=== PATIENT | female | born 1985 | race Caucasian/White ===

== ENCOUNTER 2016-11-05 14:22 | Emergency (ER) | payer MEDICAID ==
[~2016-11-05] VITALS: Ht 154.9 cm; Wt 69.0 kg
[~2016-11-05 14:22] MED LIST: CEPH-443 PO; CIPR500T4 PO; IBUP-1542 PO; PHEN-538 PO; SULF1TAB31 PO; no meds
[2016-11-05 14:25] VITALS: Ht 154.9 cm; Wt 69.0 kg
[2016-11-05] MEDS ORDERED: LORAZEPAM 0.5 MG TAB PO ONE (15:00)
[2016-11-05 15:14] LABS: ADD SCAN DIFF NO
[2016-11-05 15:16] LABS: BASOPHILS % 0.3 % (0.0-2.0); EOSINOPHILS # 0.1 10^3/ul (0.0-0.5); EOSINOPHILS % 1.3 % (0.0-7.0); HEMATOCRIT 39.2 % (37.0-47.0); HEMOGLOBIN 13.1 g/dl (12.0-16.0); LYMPHOCYTES # 2.3 10^3/ul (0.8-2.9); MEAN CORPUSCULAR HEMOGLOBIN 28.5 pg (29.0-33.0); MEAN CORPUSCULAR HGB CONC 33.4 g/dl (32.0-37.0); MEAN CORPUSCULAR VOLUME 85.2 fl (82.0-101.0); MEAN PLATELET VOLUME 8.7 fl (7.4-10.4); MONOCYTE # 0.7 10^3/ul (0.3-0.9); MONOCYTES % 8.2 % (0.0-11.0); NEUTROPHIL # 5.7 10^3/ul (1.6-7.5); NEUTROPHILS % 63.9 % (39.0-77.0); PLATELET COUNT 355 10^3/UL (140-415); RED CELL DISTRIBUTION WIDTH 13.1 % (11.5-14.5); WHITE BLOOD COUNT 8.9 10^3/ul (4.8-10.8)
[2016-11-05 15:21] LABS: URINE BLOOD (Dip) POC Negative (NEGATIVE)
[2016-11-05 15:40] LABS: ALBUMIN 4.7 g/dl (3.3-4.9); POTASSIUM 4.4 mmol/L (3.5-5.1)
[2016-11-05 15:42] LABS: CREATININE 0.62 mg/dl (0.44-1.00)
[2016-11-05 15:43] LABS: ALBUMIN/GLOBULIN RATIO 1.38; BILIRUBIN,INDIRECT 0.1 mg/dl (0-1.1); BILIRUBIN,TOTAL 0.1 mg/dl (0.2-1.3); CALCIUM 9.8 mg/dl (8.4-10.2); TOTAL PROTEIN 8.1 g/dl (6.1-8.1)
[2016-11-05] MEDS ORDERED: ACET500C5 PO (16:00)
[2016-11-05] MEDS ORDERED: LORA-441 PO (16:00)
[2016-11-05] MEDS ORDERED: BISM262O23 PO (16:04)
--- NOTE | 2016-11-05 16:07 | ERD ---
ER Documentation Chief Complaint Date/Time DATE: 11/05/16 TIME: 16:05 Chief Complaint "palpitation, both hands and feet are numb, body pain for past few days" HPI This 31-year-old female presents with multiple complaints. For last few days she has had some numbness tingling her hands, palpitations left lower quadrant intermittent abdominal pain, diarrhea, upper back pain. She denies any chest pain, syncope, seizures, headache. ROS All systems reviewed and are negative except as per history of present illness. Medications Home Meds Active Scripts Bismuth Subsalicylate* (Pepto-Bismol*) 262 Mg/15 Ml Oral.susp, 15 ML PO Q3H Y for DIARRHEA for 5 Days, ML Prov:NIKKI AKHTAR MD 11/05/16 Acetaminophen* (Tylophen*) 500 Mg Capsule, 1 CAP PO Q6H Y for PAIN AND OR ELEVATED TEMP, #20 CAP Prov:NIKKI AKHTAR MD 11/05/16 Lorazepam* (Ativan*) 0.5 Mg Tablet, 0.5 MG PO Q8, #14 TAB Prov:NIKKI AKHTAR MD 11/05/16 Phenazopyridine Hcl* (Pyridium*) 200 Mg Tab, 200 MG PO TID Y for URINARY PAIN for 2 Days, #6 TAB Prov:ROSELINE PAULA PA-C 02/25/16 Cephalexin* (Keflex*) 500 Mg Capsule, 500 MG PO QID for 7 Days, CAP Prov:ROSELINE PAULA PA-C 02/25/16 Ibuprofen* (Motrin*) 600 Mg Tab, 600 MG PO Q6H Y for PAIN AND OR ELEVATED TEMP, #30 Prov:HEATHER RILEY PA-C 05/25/15 Ciprofloxacin Hcl* (Ciprofloxacin Hcl*) 500 Mg Tablet, 500 MG PO BID for 7 Days , TAB Prov:HEATHER RILEY PA-C 05/25/15 Sulfamethoxazole-Trimethoprim (Bactrim DS Tablet) 800-160 Mg Tab, 1 TAB PO BID for 14 Days, TAB Prov:JAYCE BRYANT 12/20/14 Reported Medications [no meds] No Conflict Check 07/29/12 Allergies Allergies: Coded Allergies: No Known Allergy (Unverified , 05/24/15) PMhx/Soc History of Surgery: Yes (C SECTION) Anesthesia Reaction: No Hx Neurological Disorder: No Hx Respiratory Disorders: No Hx Cardiac Disorders: No Hx Psychiatric Problems: No Hx Miscellaneous Medical Probl: Yes (DIABETES) Hx Alcohol Use: No Hx Substance Use: No Hx Tobacco Use: No Physical Exam Vitals Vital Signs Date Time Temp Pulse Resp B/P Pulse Ox O2 Delivery O2 Flow Rate FiO2 11/05/16 14:25 97.3 100 18 137/81 99 Physical Exam Const: [] Crying, clinical appearance of being anxious. Head: Atraumatic Eyes: Normal Conjunctiva ENT: Normal External Ears, Nose and Mouth. Neck: Full range of motion..~ No meningismus. Resp: Clear to auscultation bilaterally Cardio: Regular rate and rhythm, no murmurs Abd: Soft, non tender, non distended. Normal bowel sounds Skin: No petechiae or rashes Back: No midline or flank tenderness Ext: No cyanosis, or edema Neur: Awake and alert Psych: Normal Mood and Affect Result Diagram: 11/05/16 1505 11/05/16 1505 Results 24 hrs Laboratory Tests Test 11/05/16 15:05 11/05/16 15:23 White Blood Count 8.910^3/ul Red Blood Count 4.6010^6/ul Hemoglobin 13.1g/dl Hematocrit 39.2% Mean Corpuscular Volume 85.2fl Mean Corpuscular Hemoglobin 28.5pg Mean Corpuscular Hemoglobin Concent 33.4g/dl Red Cell Distribution Width 13.1% Platelet Count 28929^3/UL Mean Platelet Volume 8.7fl Neutrophils % 63.9% Lymphocytes % 26.0% Monocytes % 8.2% Eosinophils % 1.3% Basophils % 0.3% Nucleated Red Blood Cells % 0.0/100WBC Neutrophils # 5.710^3/ul Lymphocytes # 2.310^3/ul Monocytes # 0.710^3/ul Eosinophils # 0.110^3/ul Basophils # 0.010^3/ul Nucleated Red Blood Cells # 0.010^3/ul Sodium Level 141mmol/L Potassium Level 4.4mmol/L Chloride Level 104mmol/L Carbon Dioxide Level 24mmol/L Anion Gap 17 Blood Urea Nitrogen 10mg/dl Creatinine 0.62mg/dl Glucose Level 113mg/dl Calcium Level 9.8mg/dl Total Bilirubin 0.1mg/dl Direct Bilirubin 0.00mg/dl Indirect Bilirubin 0.1mg/dl Aspartate Amino Transf (AST/SGOT) 44IU/L Alanine Aminotransferase (ALT/SGPT) 65IU/L Alkaline Phosphatase 69IU/L Total Protein 8.1g/dl Albumin 4.7g/dl Globulin 3.40g/dl Albumin/Globulin Ratio 1.38 Bedside Urine pH (LAB) 5.5 Bedside Urine Protein (LAB) Negative Bedside Urine Glucose (UA) Negative Bedside Urine Ketones (LAB) Negative Bedside Urine Blood Negative Bedside Urine Nitrite (LAB) Negative Bedside Urine Leukocyte Esterase (L Negative Current Medications Medications (Trade) Dose Ordered Sig/Dorothy Route PRN Reason Start Time Stop Time Status Last Admin Dose Admin Lorazepam (Ativan) 0.5 mg ONCE ONCE PO 11/05/16 15:00 11/05/16 15:01 DC 11/05/16 15:03 Procedures/MDM EKG: Rate/Rhythm: [Normal Sinus Rhythm] rate equals 89 QRS, ST, T-waves: [No changes consistent w/ acute ischemia] Impression: [No evidence of ischemia or arrhythmia] Given the uncertain cause of multiple complaints of CBC and CMP and urine were performed which were all negative. HCG is negative. Patient was given Ativan 0.5 mg by mouth. Patient was to be ambulatory without any distress significant signs or symptoms. Patient has multiple complaints with signs and symptoms of possible anxiety. There is no signs or symptoms of serious illness currently to warrant further workup. Patient will be treated with short course of Ativan , Pepto-Bismol for diarrhea and Tylenol for body aches and referral to local primary care or [facility] for further evaluation treatment. The patient was stable with no new complaints during the ER course. Clinically, there is no current evidence to suggest meningitis, sepsis, acute abdomen, pneumonia, acute coronary syndrome, pulmonary embolism, or any other emergent condition appearing to require further evaluation or hospitalization. The patient should certainly return for any new or worsening symptoms per the aftercare instructions. They should otherwise follow-up with her primary care doctor for reevaluation this week. Departure Diagnosis: Primary Impression: Multiple complaints Condition: Stable Patient Instructions: Stress: Causes and Effects, Symptoms With Uncertain Cause [facility] Usted se lopez hecho un examen mdico de control que le indica que no est en ciaran condicin que requiera tratamiento urgente en el Departamento de Emergencia. Un estudio ms profundo y el tratamiento de crisostomo condicin pueden esperar sin ningn riesgo hasta que usted sea atendida/o en el consultorio de crisostomo mdico o ciaran cl viv. Es responsabilidad suya arreglar ciaran maya para el seguimiento del stuart. MANEJO DE CONDICIONES NO URGENTES EN EL FUTURO 1) Si usted tiene un mdico de atencin primaria: Usted debera llamar a crisostomo mdico de atencin primaria antes de venir al departamento de emergencia. Despus de las horas de consultorio, crisostomo doctor o crisostomo asociado/a est disponible por telfono. El mdico o enfermero de jose miguel en el servicio telefnico puede asesorarle por carolee medio para atender el problema, o stuart contrario se puede programar ciaran maya. 2) Si usted no tiene un mdico de atencin primaria: Llame al mdico o clnica de referencia que aparece abajo daniel las horas de consultorio para hacer ciaran maya para que le vean. CLINICAS: [facility] [phone] [facility] [phone] [facility] [phone] [facility]. [facility] [phone] [facility] [phone] [address] [facility] [phone] Additional Instructions: Examines normal hoy. Cheque otro vez con crisostomo doctor primario en el proximo dominguez or regresa para mas o nueva simptomas. NIKKI AKHTAR MD November 05, 2016 16:07
[2016-11-05 16:10] VITALS: PULSE 89
== END 2016-11-05 16:10 | disposition home or self-care (01) ==
LOC: FTE 14:22
DX: R00.2 Palpitations (principal); R20.0 Anesthesia of skin; R20.2 Paresthesia of skin; R10.32 Left lower quadrant pain; R19.7 Diarrhea, unspecified; M54.6 Pain in thoracic spine; E11.9 Type 2 diabetes mellitus without complications
CPT/HCPCS: 80053; 81003; 85025; 93005; Z7502; Z7610

== ENCOUNTER 2018-05-23 14:42 | Emergency (ER) | END 2018-05-23 16:49 | disposition home or self-care (01) ==